=== PATIENT | male | born 1940 | race Caucasian/White ===

== ENCOUNTER → 2016-06-26 | Day surgery (SDC) | payer BC ==
[~2016-06-26] MED LIST: BUPIVACAINE/EPINEPHRINE 0.25% 50 ML VIAL ONE; KETOROLAC TROMETHAMINE 30 MG/ML (IVP) VIAL IV PUSH ONE; LACTATED RINGER'S 1000 ML INJ 1,000 ML ONE; MIDAZOLAM HCL 2 MG/2 ML VIAL ONE; PROPOFOL 100 MG/10 ML INJ IV ONE; ceFAZolin 2 GM PREMIX 50 ML ONE
--- NOTE | 2016-06-26 17:17 | TN ---
cc: ABHINAV SWIFT M.D. DATE OF SURGERY 06/26/16 PREOPERATIVE DIAGNOSIS Symptomatic right inguinal hernia. POSTOPERATIVE DIAGNOSIS 1. Symptomatic right inguinal hernia. 2. Indirect right inguinal hernia. PROCEDURE Laparoscopic right inguinal hernia repair with mesh. SURGEON Stephanie Swift MD [employer] [place] [employer] Chriss Carranza, MS III ANESTHESIA General LMA COMPLICATIONS None. INDICATIONS FOR PROCEDURE Ms. Roper is a pleasant 76 year old gentleman who developed a symptomatic bulge in his right groin. He has seen and evaluated, found to have an obvious right inguinal hernia. The patient is getting ready to travel [place] the [place] and he wanted to get the hernia fixed before he left. Risks and benefits of repair was discussed with him and his fiance and they were agreeable. PROCEDURE IN DETAIL The patient was identified, brought to the operating and placed supine on the operating table. After adequate general anesthesia was achieved via LMA, the anterior abdomen and groin was prepped and draped in standard surgical fashion. Infraumbilical space anesthetized with 0.25% Marcaine. Infraumbilical incision was made. Dissection was carried down through subcutaneous tissue to the anterior rectus fascia. Anterior rectus fascia was then incised vertically off the midline. Rectus muscles then retracted laterally. Preperitoneal space was entered with blunt finger dissection. Blunt dissecting balloon was then inserted the preperitoneal space was insufflated with 30 pumps of air under direct vision. Dissecting balloon was then removed and balloon trocar inserted. Preperitoneal space was insufflated to 11 mmHg using CO2 gas. Next, two 5 mm trocars were placed in the lower midline under direct vision. Attention was directed to the midline where the pubic tubercle and Sergio's ligament were identified. Dissection then proceeded out laterally identifying the cord structures exiting the internal ring. Traveling with the cord structures was an indirect inguinal hernia sac. The hernia sac was carefully teased off of the cord structures using a hand over hand technique. The hernia sac was stripped back several centimeters away from the internal ring. Direct space was visualized and there was no evidence of a direct hernia. A posterior window was then made behind the cord structures. A piece of polypropylene mesh was then inserted through the posterior window with a slit cut for the cord structures. The internal ring was then closed and appropriately tightened using the Pro-tacking device. Mesh was then secured medially along Sergio's ligament and pubic tubercle and superiorly along the posterior abdominal wall fascia. An onlay mesh was then placed over the first mesh in order to cover over the slit. This mesh was then secured medially and laterally. With this, the indirect and direct spaces were well covered by mesh. Mesh was photographed in place. 0.25% Marcaine was injected in the operative field. Inferior border of the mesh was then held down. The peritoneum was allowed to roll up over the mesh, again with excellent coverage of the indirect and direct spaces. All trocars were removed under direct vision. Anterior rectus fascia was then repaired using a 0 Vicryl in a [id number] fashion. Skin was closed with 4-0 Vicryl. The patient tolerated the procedure well, was awakened, brought to recovery in stable condition. Please note the presence of the [employer] assistant plant control operator was medically necessary due to her specialized surgical skills and knowledge of my surgical technique. She was present and scrubbed for the entire procedure. MD JAYCOB Reyes/ /2:13 PM /5:11 PM VINOD
== END | disposition home or self-care (01) ==
LOC: ESDC 10:34
PROVIDERS: ATTEND Surgery Trauma Surgery
DX: K40.90 Unilateral inguinal hernia, without obstruction or gangrene, not specified as recurrent (principal)
CPT/HCPCS: 00840; 49650; C1727; C1781; J0690; J1885; J2250; J3010; J7120